=== PATIENT | female | born 1980 | race Caucasian/White ===

== ENCOUNTER → 2021-09-30 | Outpatient (CLI) | payer OTHER ==
--- NOTE | 2021-10-01 11:31 | RAD ---
EXAMINATION: US PELVIS COMPLETE, 09/30/2021 4:05 PM CLINICAL INDICATION: Cystocele, pelvic pain since delivery. 3 months TECHNIQUE: Grayscale, color and spectral Doppler ultrasound images of the pelvis via transabdominal a pproach. COMPARISON: None. FINDINGS: The uterus measures 8.1 x 5.5 x 3.2 cm. The endometrial stripe measures 5 mm in thickness. No myometr ial mass. The right ovary measures 2.3 x 1.8 x 1.7 cm. The left ovary measures 3.3 x 3.3 x 1.7 cm. There is nor mal ovarian blood flow bilaterally. No adnexal mass or free fluid. IMPRESSION: Normal transabdominal pelvic ultrasound. Electronically signed by: Zhane Lopez MD (10/01/2021 11:28 AM) [id number]
== END ==
LOC: US 16:00
PROVIDERS: ATTEND Family Medicine
DX: N81.10 Cystocele, unspecified (principal); R10.2 Pelvic and perineal pain
CPT/HCPCS: 76856